=== PATIENT | female | born 1990 | race Asian ===

== ENCOUNTER 2024-12-01 07:37 | Inpatient (IN) ==
[2024-12-01] MEDS ORDERED: LIDOCAINE 1% LOCAL 20 ML VIAL INFIL PRN (07:58)
[2024-12-01 08:35] LABS: Hematocrit (blood only) 36.3 % (37.0-47.0); Hemoglobin 12.1 g/dl (12.0-16.0); Mean Corpuscular Hemoglobin 30.1 pg (25.0-34.0); Mean Corpuscular Hgb Conc 33.3 g/dL (32.0-36.0); Mean Corpuscular Volume 90.3 fL (80.0-100.0); Mean Platelet Volume 12.7 fL (9.4-12.4); Platelet Count 114 K/uL (130-400); RDW Coefficient of Variation 14.2 % (11.5-14.5); RDW Standard Deviation 46.7 fL (36.4-46.3); Red Blood Count 4.02 M/uL (4.20-5.40); White Blood Count 7.91 K/ul (4.8-10.8)
--- NOTE | 2024-12-01 08:58 | History & Physical Report ---
Date of Service December 01, 2024 Assessment & Plan (1) Supervision of normal intrauterine in primigravida: (2) Gestational diabetes: (3) conceived through in vitro fertilization: (4) Hypothyroidism during : Marcie Moses is a 31 y/o female currently at 39/6/7 WGA with an CECELIA 12/02/24 as determined by Ultrasound who is here for induction. Her was complicated by hypothyroidism and Diet-controlled GDM. Membranes were stripped at last office visit on 11/28/24. - Start Pitocin for induction of labor - Anesthesiology consult for epidural per pt request - NPO until post delivery Admission and Anticipated Discharge Date Admission Date: December 01, 2024 History of Present Illness Primary Care Provider: Kim Dash, DO Moses is a 31 y/o female currently at 39/6/7 WGA with an CECELIA 12/02/24 as determined by Ultrasound who is here for induction. Her was complicated by Hypothyroidism and GDM. no contractions; regular movement; no fluid loss; no bloody show External FHT and external uterine monitors used; Category 1 tracing; moderate FH T variability. Had regular appointments with OB. Blood Type O Positive 05/03/24 Antibody Screen NEGATIVE 05/03/24 Hgb 12.5 g/dl (12.0-16.0) 10/20/24 Hct 38.8 % (37.0-47.0) 10/20/24 MCV 89.0 fL (80.0-100.0) 10/20/24 Plt Count 147 K/uL (130-400) 10/20/24 Rubella IgG Antibody Immune (Immune) 05/03/24 Treponema pallidum Ab Negative (Negative) 09/22/24 Hep Bs Antigen Negative (Negative) 05/03/24 Hepatitis C Antibody Negative (Negative) 05/03/24 HIV 1&2 Ab/P24 Ag 4thGn Negative (Negative) 05/03/24 Glucose 1 Hr 50 gm 194 mg/dl (70-130) H 09/22/24 OB Optional Labs: Chlamydia trachomatis RNA Not Detected (NotDetected) 05/03/24 Neisseria gonorrhoeae RNA Not Detected (NotDetected) 05/03/24 Thyroid Stimulating Hormone (TSH) 1.770 uIu/ml (0.300-4.500) 09/21/24 H.1 (today) Hct: 36.3 (today) WBC: 7.91 (today) Plt: 114 (today) Allergies Allergy/AdvReac Type Severity Reaction Status Date / Time No Known Allergies Allergy Verified 11/28/24 16:23 Home Medications Medication Instructions Recorded Confirmed Type mv-mn no.97-folic 180 mcg-dha 25 1 tab PO DAILY 12/24/23 12/01/24 History mg-herb no.293 25 mg chewable tablet (Alive Daily Support ) ondansetron HCl 4 mg tablet 4 mg PO Q6H PRN nausea and 05/03/24 12/01/24 Rx vomiting #30 tabs levothyroxine 100 mcg tablet 100 mcg PO DAILY #30 tabs 08/05/24 12/01/24 Rx acetone (urine) test (Ketone Urine #50 ea 10/03/24 11/28/24 Rx Test strips) blood sugar diagnostic (OneTouch #150 ea 10/03/24 11/28/24 Rx Verio test strips) blood-glucose meter (OneTouch #1 ea 10/03/24 11/28/24 Rx Verio Reflect Meter) lancets 33 gauge (OneTouch Delica #150 ea 10/03/24 11/28/24 Rx Plus Lancet) Patient History Medical History Endometrial polyp Hypothyroid Sarah's disease Surgical History History of gynecologic surgery egg retrieval S/P laparoscopic cholecystectomy Family History Denies family history of Ovarian cancer Breast cancer Colorectal cancer Uterine cancer Social History Smoking Status: Never smoker Second Hand Exposure: No; Do You Dip or Chew Tobacco: No; Hx Alcohol Use: No Hx Substance Use: No Preferred Language: Citizen Of [place] Communication Ability: Effective Insole Presser Required: No Beliefs That Will Affect Care: None marital status: marital status details: Grabiel (34) [phone] Current Living Situation: Family Current Living Situation Comment: but living in [place] working, lives with sister current occupational status: employed current occupation: [employer] Feels Safe at Home: Yes Assistive Devices: None Review of Systems Denies fever, chills, sweats Denies shortness of breath, difficulty breathing, chest pain, palpitations, chest pressure. Denies breast pain. Denies dysuria. Denies headache or changes in vision. Physical Exam Physical Exam: General: Alert, oriented. No acute distress. Cardiac: Regular rate and rhythm, no murmurs/rubs/gallops. Respiratory: Clear to auscultation bilaterally a/p, no wheezes/rales/rhonchi. No increased work of breathing. Symmetrical chest rise. No respiratory distress. Abdomen: Gravid; Pelvic: Dilation 2cm; Effacement 80%; Station -[address] Jones on 11/28/24 Lower Extremities: No lower extremity edema or swelling. No deep calf pain. Miguel's negative bilaterally Results & Data Vital Signs (Past 12 Hours) Vital Signs Pulse BP 12/01/24 07:53 108 H 122/81 Code Status & VTE Plan VTE Prophylaxis Plan VTE Prophylaxis will be ordered: No Monitoring External Monitor External FHT and external uterine monitors used; Category 1 tracing; moderate FHT variability. Resident Activity Tracking Resident Involvement: Resident Care Provided Care Provided: Adult Hospital Medicine
[2024-12-01] MEDS: OXYTOCIN 30 UNITS/NSS 30 UNITS/500 ML BAG IV PRN (08:59)
[2024-12-01] MEDS: LACTATED RINGER'S 1,000 ML IV PRN (14:42)
[2024-12-01] MEDS ORDERED: ePHEDrine sulfate 50 MG/ML AMP IV PRN (15:06)
[2024-12-01] MEDS ORDERED: LIDOCAINE 2% MPF LOCAL 5 ML VIAL EPI PRN (15:06)
[2024-12-01] MEDS ORDERED: SODIUM CHLORIDE 0.9% PF INJ 10 ML VIAL EPI PRN (15:06)
[2024-12-01] MEDS ORDERED: diphenhydrAMINE 50 MG/ML VIAL IV PRN (15:06)
[2024-12-01] MEDS ORDERED: ONDANSETRON INJ 2 MG/ML 2 ML VIAL IV PRN (15:06)
[2024-12-01] MEDS ORDERED: NALOXONE HCL 1 MG in SODIUM CHLORIDE 0.9% 1,000 ML IV PRN (15:06)
[2024-12-01] MEDS ORDERED: fentaNYL citrate PF 100 MCG/2 ML VIAL EPI PRN (15:06)
[2024-12-01] MEDS ORDERED: BUPIVACAINE 0.25% PF 30 ML VIAL EPI PRN (15:06)
[2024-12-01] MEDS ORDERED: NALBUPHINE HCL INJ 10 MG/ML AMP IV PRN (15:06)
[2024-12-01] MEDS ORDERED: ROPIVACAINE 0.5% PF 5 MG/ML 20 ML VIAL EPI PRN (15:06)
[2024-12-01] MEDS ORDERED: NALOXONE HCL 0.4 MG/1 ML VIAL/CARP IV PRN (15:06)
--- NOTE | 2024-12-01 15:08 | Anesthesiology Consultation ---
Date of Service December 01, 2024 Assessment & Plan (1) Encounter for pre-operative examination: Chart Review Chart Review: Patient NOT seen in Pre Admission Testing and Acceptable Risk for Labor Epidural Consults Requested none History Height/Weight Height: 5 ft 2 in Weight: 70.76 kg Allergies Allergy/AdvReac Type Severity Reaction Status Date / Time No Known Allergies Allergy Verified 11/28/24 16:23 Medications Home Medications Medication Instructions Recorded Confirmed Last Taken mv-mn no.97-folic 180 mcg-dha 25 1 tab PO DAILY 12/24/23 12/01/24 11/30/24 mg-herb no.293 25 mg chewable tablet (Alive Daily Support ) ondansetron HCl 4 mg tablet 4 mg PO Q6H PRN nausea and 05/03/24 12/01/24 Unknown vomiting #30 tabs levothyroxine 100 mcg tablet 100 mcg PO DAILY #30 tabs 08/05/24 12/01/24 12/01/24 acetone (urine) test (Ketone Urine #50 ea 10/03/24 11/28/24 Unknown Test strips) blood sugar diagnostic (OneTouch #150 ea 10/03/24 11/28/24 Unknown Verio test strips) blood-glucose meter (OneTouch #1 ea 10/03/24 11/28/24 Unknown Verio Reflect Meter) lancets 33 gauge (OneTouch Delica #150 ea 10/03/24 11/28/24 Unknown Plus Lancet) Active Medications Generic Name Dose Route Start Last Admin Trade Name Freq PRN Reason Stop Dose Admin Oxytocin 30 units in 500 mls @ 18 mls/hr 12/01/24 07:58 12/01/24 14:00 Pitocin 30 Units/Nss IV 12/03/24 07:57 1.08 units/hr .Q24H PRN 18 mls/hr Labor Induction/Augmentation Titration Protocol 1.08 UNITS/HR Lactated Ringer's 1,000 mls @ 125 mls/hr 12/01/24 07:58 12/01/24 14:42 Lr IV 12/03/24 07:57 999 mls/hr .Q8H PRN Administration L&D Protocol Protocol Past Medical History Medical History Endometrial polyp Hypothyroid Sarah's disease Exercise / Class Metabolic Activity II 4-5 Yardwork/Stairs/Walk up hill Past Family History Family History Denies family history of Ovarian cancer Breast cancer Colorectal cancer Uterine cancer Past Surgical History Surgical History History of gynecologic surgery egg retrieval S/P laparoscopic cholecystectomy Social History Smoking Status: Never smoker Do You Dip or Chew Tobacco: No Hx Alcohol Use: No alcohol intake frequency: holidays/special occasions only Hx Substance Use: No substance use type: does not use Physical Exam Vital Signs Last Vital Signs Temp 36.5 C 12/01/24 12:46 Pulse 89 12/01/24 15:37 Resp 16 12/01/24 13:00 BP 121/69 12/01/24 15:37 Pulse Ox 100 12/01/24 15:33 Testing Laboratory Results 12/01/24 08:15 12/01/24 10:02 POC Glucose 86
[2024-12-01] MEDS: fentaNYL citrate PF 100 MCG/2 ML VIAL EPI STA (15:36)
[2024-12-01] MEDS: SODIUM CHLORIDE 0.9% PF INJ 10 ML VIAL EPI STA (15:36)
[2024-12-01] MEDS: BUPIVACAINE 0.25% PF 30 ML VIAL EPI STA (15:36)
[2024-12-01] MEDS: LIDOCAINE 2%/EPINEPHRINE 1:200,000 20 ML PF EPI STA (15:36)
[2024-12-01] MEDS: fentANYL 2 MCG/ML BUPIVacaine 0.125%-NSS 100ML BAG EPI PRN (15:43)
[2024-12-01] MEDS: fentaNYL citrate PF 100 MCG/2 ML VIAL ONE (16:48)
[2024-12-01] MEDS: BUPIVACAINE 0.25% PF 30 ML VIAL ONE (16:48)
[2024-12-01] MEDS: LIDOCAINE 2%/EPINEPHRINE 1:200,000 20 ML PF ONE (16:48)
[2024-12-01] MEDS: ePHEDrine sulfate 50 MG/ML AMP ONE (16:48)
[2024-12-01] MEDS: fentANYL 2 MCG/ML BUPIVacaine 0.125%-NSS 100ML BAG ONE (16:48)
[2024-12-01] MEDS: SODIUM CHLORIDE 0.9% PF INJ 10 ML VIAL ONE (16:49)
[2024-12-02] MEDS: OXYTOCIN 30 UNITS/NSS 30 UNITS/500 ML BAG IV PRN ×3 (00:40→05:40)
--- NOTE | 2024-12-02 00:48 | Delivery Summary ---
Vaginal Delivery Summary Date of Service December 02, 2024 Vaginal Delivery Summary and 2nd Degree LAC Spontaneous vaginal delivery the patient was induced at 39+ weeks gestational diabetes initially Pitocin was started then artificial rupture membranes after an epidural she progressed to fully dilated she had a tight band of tissue that was in the lower vagina that was tearing I offered her to keep pushing through the tight band of tissue or a small episiotomy and she elected episiotomy on a push this was made with the scissors and a small 1 cm incision she was unable to push the baby out in occiput anterior position fluid was clear no nuchal cord gentle traction the baby resulted in easy delivery live vigorous male infant cord clamped and cut cord gases obtained placenta removed with traction on exam there was a right sulcus tear this was repaired with 3-0 Vicryl and there was also the right medial lateral episiotomy this did not extend to the rectal sphincter this was repaired with 3-0 Vicryl in the usual fashion sponge and instrument counts were correct QBL per nursing record [id number] Vaginal Delivery Charge Delivery Type Details: and 2nd Degree LAC
[2024-12-02] MEDS ORDERED: ACETAMINOPHEN 325 MG TAB PO PRN ×2 (01:00→07:12)
[2024-12-02] MEDS ORDERED: bisacodyL 10 MG SUPP PR PRN (01:00)
[2024-12-02] MEDS ORDERED: BENZOCAINE 20% SPRY 85 APPLN/85 GM CAN EXT PRN ×2 (01:00→07:12)
[2024-12-02] MEDS ORDERED: HYDROCORTISONE ACETATE 25 MG SUPP PR PRN ×2 (01:00→07:12)
[2024-12-02] MEDS: IBUPROFEN 600 MG TAB PO PRN ×2 (01:19→18:15)
--- NOTE | 2024-12-02 01:41 | Anesthesia Procedure Note ---
Date of Service December 02, 2024 Anesthesia Post Epidural Note Vital Signs Vital Signs: Temp Pulse Resp BP Pulse Ox O2 Del Method 36.7 C 112 H 18 103/50 L 99 Room Air 12/01/24 22:45 12/02/24 01:30 12/02/24 01:15 12/02/24 01:30 12/02/24 00:45 12/01/24 19:05 Pain Intensity Abdomen: Pain Intensity: 5 Notes Mental Status: alert / awake / arousable and participated in evaluation Nausea / Vomiting: adequately controlled Pain: adequately controlled Airway Patency, RR, SpO2: stable & adequate BP & HR: stable & adequate Hydration State: stable & adequate Neuraxial Anesthesia: was administered and sensory block is resolving Anesthetic Complications: no major complications apparent and Pt Satisfied with anesthetic care Epidural: Removed without complications and With tip intact
[2024-12-02] MEDS: DIPHTHER/TETAN/PERTUS Vaccine (Tdap, Adol/Adult) 0.5mL IM ONE (02:10)
[2024-12-02] MEDS: miSOPROStoL 200 MCG TAB PR ONE (02:54)
[2024-12-02] MEDS ORDERED: SODIUM CHLORIDE 0.9% 100 ML IV PRN ×3 (03:13→10:45)
[2024-12-02] MEDS ORDERED: PROPOFOL IV EMULSION 10 MG/ML 20 ML VIAL IV ONE (04:23)
[2024-12-02] MEDS ORDERED: DEXAMETHASONE SOD INJ 4 MG/ML VIAL ONE (04:24)
[2024-12-02] MEDS ORDERED: ONDANSETRON INJ 2 MG/ML 2 ML VIAL ONE (04:24)
[2024-12-02] MEDS ORDERED: fentaNYL citrate PF 100 MCG/2 ML VIAL ONE ×2 (04:24→05:09)
[2024-12-02] MEDS ORDERED: SUCCINYLCHOLINE CHLORIDE 20 MG/ML 10 ML VIAL IV ONE (04:24)
[2024-12-02] MEDS ORDERED: ceFAZolin 2000MG 2,000 MG/15 ML SYR IV STA (04:52)
[2024-12-02] MEDS ORDERED: ALBUMIN HUMAN 5% 12.5 GM/250 ML VIAL IV ONE (05:24)
--- NOTE | 2024-12-02 05:30 | Operative Report ---
Post Operative Report Pre & Post Diagnosis Operation Date: 12/02/24 04:30 Pre-Op Diagnosis: exam and drainage of hematoma under anesthesia I identified the patient and participated in the time-out.: Yes Procedure Operation Date: 12/02/24 04:30 Actual Procedures p Exam Under Anesthesia for drainage of hematoma - Carl Grant MD, FACOG Surgeon Carl Grant MD, FACOG Award Clerk . Quantitative Blood Loss (QBL) 110 Findings Consistent with Post-Op Diagnosis Specimens none Description of Procedure Clinical note the patient had a vaginal delivery with small episiotomy and a right sulcal tear this was repaired at the time of delivery subsequently she had 2 episodes of bleeding within the few hours after delivery specifically this responded to pressure and massage of the uterus and increase in Pitocin I could not see any bleeding from the repair sites at this time after this though second bleeding at event occurred and at that time I noted that there was a right sided hematoma extending to the right buttocks. At this stage I recommended going to the operating room since this was emergent this was just proceeded directly risks and benefits discussed with family She was given a general anesthetic prepped and draped in dorsal lithotomy position in [facility] bladder had a Amaya catheter in, 650 of urine had been initially found from this I examined the uterus carefully performing an internal uterine exam and bimanual the uterus tone was firm there was nothing inside of the uterus either clot or placenta the bleeding clearly seem to be coming from the hematoma on the right side this area was opened up digitally and then a large clot was removed from the hematoma. Care was taken to look all around the vagina this was the only spot of bleeding the repair of the vaginal aspect was done first with 3-0 Vicryl I then identified the hematoma and oversewed this with 3-0 Vicryl in a [id number] stitch x 2 the crown stitch was then performed the rest of the peritoneum was repaired at this stage there was no need for packing as there was no significant bleeding the hematoma had been evacuated QBL for this procedure was estimated to be at 110 mL prior to this with the delivery and the 2 subsequent bleeds after delivery time the QBL was 1462 mL thus 1572 total after discussion with anesthesia we agreed to haro sfuse 1 unit of blood 3 doses of Ancef will be given as well she will be watched carefully sponge and instrument counts correct I attest to the content of the Intraoperative Record and any orders documented therein. Any exceptions are noted below. OB Procedure Charges 96988 PP Curettage (drainage and repair of hematoma)
[2024-12-02] MEDS: LACTATED RINGER'S 1,000 ML IV SCH (05:45)
[2024-12-02] MEDS: TRANEXAMIC ACID / 0.7% NACL 1,000 MG/100 ML BAG IV STA (06:00)
[2024-12-02] MEDS ORDERED: PHENYLEPHRINE 100MCG/ML 5ML SYR ONE (06:05)
[2024-12-02] MEDS ORDERED: ePHEDrine sulfate 50 MG/5 ML SYR ONE (06:05)
[2024-12-02] MEDS ORDERED: DIPHTHER/TETAN/PERTUS Vaccine (Tdap, Adol/Adult) 0.5mL IM ONE ×2 (06:11→07:12)
--- NOTE | 2024-12-02 06:12 | Anesthesiology Progress Note ---
Date of Service December 02, 2024 Anesthesia Post Procedure Vital Signs Vital Signs: Temp Pulse Resp BP Pulse Ox O2 Del Method 12/02/24 06:09 113 H 101/61 12/02/24 06:05 118 H 100 12/02/24 06:04 118 H 105/65 12/02/24 06:00 123 H 100 12/02/24 05:59 133 H 107/68 12/02/24 05:57 36.6 C 123 H 18 107/66 100 12/02/24 05:55 132 H 100 12/02/24 05:50 129 H 100 12/02/24 05:48 139 H 90 12/02/24 05:45 130 H 100 12/02/24 05:43 130 H 107/66 12/02/24 05:40 134 H 100 12/02/24 04:32 128 H 100 12/02/24 04:30 141 H 119/71 12/02/24 04:27 124 H 100 12/02/24 04:22 120 H 100 12/02/24 04:17 132 H 100 12/02/24 04:16 125 H 114/70 12/02/24 04:12 160 H 100 12/02/24 04:07 148 H 100 12/02/24 04:02 134 H 100 12/02/24 04:00 153 H 111/59 L 12/02/24 03:57 109 H 100 12/02/24 03:52 120 H 100 12/02/24 03:47 92 H 100 12/02/24 03:45 101 H 77/47 L 12/02/24 03:42 93 H 100 12/02/24 03:37 87 100 12/02/24 03:32 85 100 12/02/24 03:30 80 77/48 L 12/02/24 03:27 83 100 12/02/24 03:22 82 100 12/02/24 03:17 93 H 100 12/02/24 03:15 90 88/56 L 12/02/24 03:12 102 H 100 12/02/24 03:06 87 99 12/02/24 03:01 97 H 100 12/02/24 03:00 95 H 86/57 L 12/02/24 02:56 95 H 100 12/02/24 02:51 116 H 83/53 L 100 12/02/24 02:45 101 H 82/50 L 12/02/24 02:30 115 H 83/53 L 12/02/24 02:15 18 12/02/24 02:15 106 H 92/56 L 12/02/24 02:00 96 H 81/54 L 12/02/24 01:45 18 12/02/24 01:45 100 H 90/53 L 12/02/24 01:30 18 12/02/24 01:30 112 H 103/50 L 12/02/24 01:23 103 H 118/53 L 12/02/24 01:15 18 12/02/24 01:07 111 H 97/57 L 12/02/24 01:03 121 H 81/48 L 12/02/24 01:02 127 H 81/44 L 12/02/24 01:00 18 12/02/24 00:45 18 12/02/24 00:45 114 H 94/60 L 99 12/02/24 00:43 112 H 118/77 12/02/24 00:40 110 H 97 12/02/24 00:35 118 H 97 12/02/24 00:30 133 H 100 12/02/24 00:28 90 131/99 12/02/24 00:25 141 H 97 12/02/24 00:20 131 H 99 12/02/24 00:15 110 H 20 100 12/02/24 00:10 142 H 100 12/02/24 00:05 117 H 97 12/02/24 00:00 105 H 20 100 12/01/24 23:55 100 12/01/24 23:55 99 H 12/01/24 23:50 100 12/01/24 23:50 123 H 12/01/24 23:45 20 12/01/24 23:45 20 12/01/24 23:45 98 12/01/24 23:45 98 H 12/01/24 23:42 83 L 12/01/24 23:42 121 H 12/01/24 23:40 98 12/01/24 23:40 91 H 12/01/24 23:36 82 L 12/01/24 23:36 97 H 12/01/24 23:35 98 12/01/24 23:35 92 H 12/01/24 23:30 77 L 12/01/24 23:30 106 H 12/01/24 23:25 99 12/01/24 23:25 92 H 12/01/24 23:20 98 12/01/24 23:20 85 12/01/24 23:15 97 12/01/24 23:15 86 12/01/24 23:10 74 L 12/01/24 23:10 87 12/01/24 23:06 83 L 12/01/24 23:06 113 H 12/01/24 23:05 100 12/01/24 23:05 90 12/01/24 23:00 20 12/01/24 23:00 20 12/01/24 23:00 99 12/01/24 23:00 91 H 12/01/24 23:00 87 L 12/01/24 23:00 97 H 12/01/24 22:59 95 H 12/01/24 22:59 109/54 L 12/01/24 22:55 93 12/01/24 22:55 98 H 12/01/24 22:53 86 L 12/01/24 22:53 105 H 12/01/24 22:50 100 12/01/24 22:50 91 H 12/01/24 22:45 36.7 C 12/01/24 22:45 100 12/01/24 22:45 92 H 12/01/24 22:43 104 H 12/01/24 22:43 125/78 12/01/24 22:40 99 12/01/24 22:40 79 12/01/24 22:35 98 12/01/24 22:35 80 12/01/24 22:30 18 12/01/24 22:30 18 12/01/24 22:30 97 12/01/24 22:30 74 12/01/24 22:29 72 12/01/24 22:29 94/54 L 12/01/24 22:25 98 12/01/24 22:25 78 12/01/24 22:20 99 12/01/24 22:20 76 12/01/24 22:15 98 12/01/24 22:15 69 12/01/24 22:13 73 12/01/24 22:13 100/56 L 12/01/24 22:10 99 12/01/24 22:10 74 12/01/24 22:05 99 12/01/24 22:05 82 12/01/24 22:00 18 12/01/24 22:00 18 12/01/24 22:00 98 12/01/24 22:00 71 12/01/24 21:57 71 12/01/24 21:57 95/59 L 12/01/24 21:55 98 12/01/24 21:55 77 12/01/24 21:50 98 12/01/24 21:50 66 12/01/24 21:45 99 12/01/24 21:45 67 12/01/24 21:43 67 12/01/24 21:43 92/52 L 12/01/24 21:40 99 12/01/24 21:40 73 12/01/24 21:35 98 12/01/24 21:35 69 12/01/24 21:30 18 12/01/24 21:30 18 12/01/24 21:30 100 12/01/24 21:30 69 12/01/24 21:28 69 12/01/24 21:28 112/71 12/01/24 21:25 98 12/01/24 21:25 71 12/01/24 21:20 99 12/01/24 21:20 68 12/01/24 21:15 98 12/01/24 21:15 75 12/01/24 21:15 108/65 12/01/24 21:10 99 12/01/24 21:10 72 12/01/24 21:05 99 12/01/24 21:05 70 12/01/24 21:00 18 12/01/24 21:00 18 12/01/24 21:00 98 12/01/24 21:00 86 12/01/24 20:59 70 12/01/24 20:59 111/65 12/01/24 20:55 100 12/01/24 20:55 74 12/01/24 20:50 98 12/01/24 20:50 82 12/01/24 20:45 36.6 C 12/01/24 20:45 97 12/01/24 20:45 87 12/01/24 20:44 71 12/01/24 20:44 99/58 L 12/01/24 20:40 97 12/01/24 20:40 72 12/01/24 20:35 98 12/01/24 20:35 71 12/01/24 20:30 18 12/01/24 20:30 18 12/01/24 20:30 98 12/01/24 20:30 70 12/01/24 20:28 66 12/01/24 20:28 95/54 L 12/01/24 20:25 98 12/01/24 20:25 72 12/01/24 20:20 98 12/01/24 20:20 68 12/01/24 20:15 98 12/01/24 20:15 71 12/01/24 20:15 74 12/01/24 20:15 96/54 L 12/01/24 20:10 98 12/01/24 20:10 74 12/01/24 20:07 92 12/01/24 20:07 71 12/01/24 20:05 98 12/01/24 20:05 70 12/01/24 20:00 98 12/01/24 20:00 64 12/01/24 19:58 68 12/01/24 19:58 92/55 L 12/01/24 19:55 99 12/01/24 19:55 78 12/01/24 19:50 98 12/01/24 19:50 64 12/01/24 19:45 97 12/01/24 19:45 75 12/01/24 19:44 69 12/01/24 19:44 112/57 L 12/01/24 19:40 97 12/01/24 19:40 66 12/01/24 19:35 98 12/01/24 19:35 67 12/01/24 19:30 18 12/01/24 19:30 18 12/01/24 19:30 98 12/01/24 19:30 68 12/01/24 19:29 71 12/01/24 19:29 113/55 L 12/01/24 19:25 99 12/01/24 19:25 66 12/01/24 19:20 98 12/01/24 19:20 68 12/01/24 19:15 97 12/01/24 19:15 67 12/01/24 19:12 68 12/01/24 19:12 112/66 12/01/24 19:10 98 12/01/24 19:10 74 12/01/24 19:05 36.6 C 18 12/01/24 19:05 Room Air 12/01/24 19:05 18 12/01/24 19:05 36.6 C 18 12/01/24 19:05 98 12/01/24 19:05 78 12/01/24 19:00 98 12/01/24 19:00 71 12/01/24 18:59 65 12/01/24 18:59 107/61 12/01/24 18:43 85 12/01/24 18:43 99/68 L 12/01/24 18:35 72 12/01/24 18:35 116/63 12/01/24 18:28 96 12/01/24 18:28 66 12/01/24 18:27 67 12/01/24 18:27 81/51 L 12/01/24 18:23 97 12/01/24 18:23 64 12/01/24 18:18 97 12/01/24 18:18 69 12/01/24 18:13 97 12/01/24 18:13 68 12/01/24 18:13 83/49 L 12/01/24 18:08 97 12/01/24 18:08 66 12/01/24 18:03 98 12/01/24 18:03 69 12/01/24 18:00 18 12/01/24 18:00 18 12/01/24 17:58 97 12/01/24 17:58 70 12/01/24 17:54 18 12/01/24 17:54 36.7 C 18 12/01/24 17:53 98 12/01/24 17:53 71 12/01/24 17:53 101/73 12/01/24 17:48 98 12/01/24 17:48 80 12/01/24 17:43 97 12/01/24 17:43 85 12/01/24 17:43 104/71 12/01/24 17:38 98 12/01/24 17:38 77 12/01/24 17:33 96 12/01/24 17:33 73 12/01/24 17:32 72 12/01/24 17:32 98/58 L 12/01/24 17:28 97 12/01/24 17:28 78 12/01/24 17:23 98 12/01/24 17:23 70 12/01/24 17:22 85 12/01/24 17:22 106/69 12/01/24 17:18 98 12/01/24 17:18 76 12/01/24 17:13 98 12/01/24 17:13 65 12/01/24 17:12 67 12/01/24 17:12 114/57 L 12/01/24 17:08 97 12/01/24 17:08 68 12/01/24 17:03 98 12/01/24 17:03 63 12/01/24 17:01 68 12/01/24 17:01 105/62 12/01/24 16:58 97 12/01/24 16:58 68 12/01/24 16:53 97 12/01/24 16:53 70 12/01/24 16:52 65 12/01/24 16:52 104/57 L 12/01/24 16:48 98 12/01/24 16:48 72 12/01/24 16:43 98 12/01/24 16:43 70 12/01/24 16:42 75 12/01/24 16:42 109/72 12/01/24 16:38 98 12/01/24 16:38 77 12/01/24 16:33 99 12/01/24 16:33 74 12/01/24 16:33 110/60 12/01/24 16:28 98 12/01/24 16:28 74 12/01/24 16:23 98 12/01/24 16:23 71 12/01/24 16:21 73 12/01/24 16:21 111/72 12/01/24 16:18 99 12/01/24 16:18 69 12/01/24 16:13 99 12/01/24 16:13 66 12/01/24 16:12 68 12/01/24 16:12 111/68 12/01/24 16:08 98 12/01/24 16:08 79 12/01/24 16:03 100 12/01/24 16:03 83 12/01/24 16:01 88 12/01/24 16:01 131/85 12/01/24 15:58 100 12/01/24 15:58 80 12/01/24 15:58 120/75 12/01/24 15:55 74 06/19/25 15:55 111/73 12/01/24 15:53 99 12/01/24 15:53 85 12/01/24 15:52 80 12/01/24 15:52 116/76 12/01/24 15:49 81 12/01/24 15:49 112/70 12/01/24 15:48 99 12/01/24 15:48 84 12/01/24 15:46 74 12/01/24 15:46 110/78 12/01/24 15:43 100 12/01/24 15:43 80 12/01/24 15:43 82 12/01/24 15:43 114/71 12/01/24 15:40 96 H 12/01/24 15:40 125/76 12/01/24 15:38 100 12/01/24 15:38 93 H 12/01/24 15:37 89 12/01/24 15:37 121/69 12/01/24 15:34 90 12/01/24 15:34 134/63 12/01/24 15:33 100 12/01/24 15:33 102 H 12/01/24 15:31 91 H 12/01/24 15:31 125/79 12/01/24 15:28 100 12/01/24 15:28 92 H 12/01/24 15:23 100 12/01/24 15:23 111 H 12/01/24 15:20 97 H 12/01/24 15:20 128/70 12/01/24 15:18 100 12/01/24 15:18 114 H 12/01/24 15:13 100 12/01/24 15:13 103 H 12/01/24 15:08 99 12/01/24 15:08 84 12/01/24 15:03 99 12/01/24 15:03 86 12/01/24 13:00 16 12/01/24 13:00 16 12/01/24 12:46 16 12/01/24 12:46 36.5 C 16 12/01/24 12:46 78 12/01/24 12:46 109/62 12/01/24 11:01 74 12/01/24 11:01 101/66 12/01/24 09:59 86 06/19/25 09:59 99/65 L 12/01/24 09:17 36.5 C 108 H 16 122/81 12/01/24 07:53 108 H 122/81 Pain Intensity Abdomen: Pain Intensity: 5 Transfer of Care Handoff Completed per policy Notes Mental Status: alert / awake / arousable and participated in evaluation Patient Amnestic to Procedure: Yes Nausea / Vomiting: adequately controlled Pain: adequately controlled Airway Patency, RR, SpO2: stable & adequate BP & HR: stable & adequate Hydration State: stable & adequate Anesthetic Complications: no major complications apparent and Pt Satisfied with anesthetic care Notes: 2nd PIV started in recovery and 1 unit pRBC started given bleeding (hematoma). See operative note for full details. Pain well controlled with minimal nausea. Post-transfusion CBC to be collected per OB physician.
[2024-12-02] MEDS ORDERED: MoRPHine SULFATE 2 MG/ML CARP IV PRN (06:30)
[2024-12-02] MEDS ORDERED: LEVOTHYROXINE SODIUM 100 MCG TABLET PO SCH (06:30)
[2024-12-02] MEDS: miSOPROStoL 200 MCG TAB ONE (06:45)
[2024-12-02] MEDS: MoRPHine SULFATE 2 MG/ML CARP ONE (07:06)
[2024-12-02] MEDS ORDERED: OXYTOCIN 30 UNITS/NSS 30 UNITS/500 ML BAG IV PRN (07:12)
[2024-12-02] MEDS ORDERED: IBUPROFEN 600 MG TAB PO PRN (07:12)
--- NOTE | 2024-12-02 07:17 | Obstetrical Progress Note ---
Date of Service December 02, 2024 Assessment & Plan Admission and Anticipated Discharge Date Admission Date: December 01, 2024 Subjective Note patient experiencing some discomfort I examined her at 7:17 AM there still is some swelling and the right buttock area I have left packing in place. I do believe there is some oozing from the hematoma but it is not brisk bleeding will continue with packing and monitoring closely labs she is receiving blood as we speak Results & Data Vital Signs (Past 12 Hours) Vital Signs Temp Pulse Resp BP Pulse Ox 12/02/24 07:14 118 H 101/60 12/02/24 07:11 124 H 92 12/02/24 07:10 124 H 100 12/02/24 07:09 114 H 95/59 L 12/02/24 07:05 106 H 100 12/02/24 07:04 111 H 102/62 12/02/24 07:01 119 H 92 12/02/24 07:00 105 H 100 12/02/24 06:59 105 H 100/62 12/02/24 06:55 110 H 99 12/02/24 06:54 111 H 97/61 L 12/02/24 06:50 109 H 100 12/02/24 06:49 116 H 94/63 L 12/02/24 06:45 109 H 100 12/02/24 06:44 112 H 97/65 L 12/02/24 06:40 111 H 100 12/02/24 06:39 109 H 98/67 L 12/02/24 06:35 116 H 97/62 L 100 12/02/24 06:30 113 H 100 12/02/24 06:29 114 H 99/58 L 12/02/24 06:25 112 H 100 12/02/24 06:24 110 H 98/60 L 12/02/24 06:20 118 H 100 12/02/24 06:19 98.1 F 18 12/02/24 06:19 98.1 F 111 H 18 101/59 L 12/02/24 06:15 106 H 100 12/02/24 06:14 111 H 105/59 L 12/02/24 06:10 107 H 100 12/02/24 06:09 113 H 101/61 12/02/24 06:05 118 H 100 12/02/24 06:04 118 H 105/65 12/02/24 06:00 123 H 100 06/20/25 05:59 133 H 107/68 12/02/24 05:57 97.9 F 123 H 18 107/66 100 12/02/24 05:57 18 12/02/24 05:57 98.4 F 18 12/02/24 05:55 132 H 100 12/02/24 05:50 129 H 100 12/02/24 05:48 139 H 90 12/02/24 05:45 130 H 100 12/02/24 05:43 130 H 107/66 12/02/24 05:40 134 H 100 12/02/24 04:32 128 H 100 12/02/24 04:30 141 H 119/71 12/02/24 04:27 124 H 100 12/02/24 04:22 120 H 100 12/02/24 04:17 132 H 100 12/02/24 04:16 125 H 114/70 12/02/24 04:12 160 H 100 12/02/24 04:07 148 H 100 12/02/24 04:02 134 H 100 12/02/24 04:00 153 H 111/59 L 12/02/24 03:57 109 H 100 12/02/24 03:52 120 H 100 12/02/24 03:47 92 H 100 12/02/24 03:45 101 H 77/47 L 12/02/24 03:42 93 H 100 12/02/24 03:37 87 100 12/02/24 03:32 85 100 12/02/24 03:30 80 77/48 L 12/02/24 03:27 83 100 12/02/24 03:22 82 100 12/02/24 03:17 93 H 100 12/02/24 03:15 90 88/56 L 12/02/24 03:12 102 H 100 12/02/24 03:06 87 99 12/02/24 03:01 97 H 100 12/02/24 03:00 95 H 86/57 L 12/02/24 02:56 95 H 100 12/02/24 02:51 116 H 83/53 L 100 12/02/24 02:45 101 H 82/50 L 12/02/24 02:30 115 H 83/53 L 12/02/24 02:15 18 12/02/24 02:15 106 H 92/56 L 12/02/24 02:00 96 H 81/54 L 12/02/24 01:45 18 12/02/24 01:45 100 H 90/53 L 12/02/24 01:30 18 12/02/24 01:30 112 H 103/50 L 12/02/24 01:23 103 H 118/53 L 12/02/24 01:15 18 12/02/24 01:07 111 H 97/57 L 12/02/24 01:03 121 H 81/48 L 12/02/24 01:02 127 H 81/44 L 12/02/24 01:00 18 12/02/24 00:45 18 12/02/24 00:45 114 H 94/60 L 99 12/02/24 00:43 112 H 118/77 12/02/24 00:40 110 H 97 12/02/24 00:35 118 H 97 12/02/24 00:30 133 H 100 12/02/24 00:28 90 131/99 12/02/24 00:25 141 H 97 12/02/24 00:20 131 H 99 12/02/24 00:15 110 H 20 100 12/02/24 00:10 142 H 100 12/02/24 00:05 117 H 97 12/02/24 00:00 105 H 20 100 12/01/24 23:55 100 12/01/24 23:55 99 H 12/01/24 23:50 100 12/01/24 23:50 123 H 12/01/24 23:45 20 12/01/24 23:45 20 12/01/24 23:45 98 12/01/24 23:45 98 H 12/01/24 23:42 83 L 12/01/24 23:42 121 H 12/01/24 23:40 98 12/01/24 23:40 91 H 12/01/24 23:36 82 L 12/01/24 23:36 97 H 12/01/24 23:35 98 12/01/24 23:35 92 H 12/01/24 23:30 77 L 12/01/24 23:30 106 H 12/01/24 23:25 99 12/01/24 23:25 92 H 12/01/24 23:20 98 12/01/24 23:20 85 12/01/24 23:15 97 06/19/25 23:15 86 12/01/24 23:10 74 L 12/01/24 23:10 87 12/01/24 23:06 83 L 12/01/24 23:06 113 H 12/01/24 23:05 100 12/01/24 23:05 90 12/01/24 23:00 20 12/01/24 23:00 20 12/01/24 23:00 99 12/01/24 23:00 91 H 12/01/24 23:00 87 L 12/01/24 23:00 97 H 12/01/24 22:59 95 H 12/01/24 22:59 109/54 L 12/01/24 22:55 93 12/01/24 22:55 98 H 12/01/24 22:53 86 L 12/01/24 22:53 105 H 12/01/24 22:50 100 12/01/24 22:50 91 H 12/01/24 22:45 98.1 F 12/01/24 22:45 100 12/01/24 22:45 92 H 12/01/24 22:43 104 H 12/01/24 22:43 125/78 12/01/24 22:40 99 12/01/24 22:40 79 12/01/24 22:35 98 12/01/24 22:35 80 12/01/24 22:30 18 12/01/24 22:30 18 12/01/24 22:30 97 12/01/24 22:30 74 12/01/24 22:29 72 12/01/24 22:29 94/54 L 12/01/24 22:25 98 12/01/24 22:25 78 12/01/24 22:20 99 12/01/24 22:20 76 12/01/24 22:15 98 12/01/24 22:15 69 12/01/24 22:13 73 12/01/24 22:13 100/56 L 12/01/24 22:10 99 12/01/24 22:10 74 12/01/24 22:05 99 12/01/24 22:05 82 12/01/24 22:00 18 12/01/24 22:00 18 12/01/24 22:00 98 12/01/24 22:00 71 12/01/24 21:57 71 12/01/24 21:57 95/59 L 12/01/24 21:55 98 12/01/24 21:55 77 12/01/24 21:50 98 12/01/24 21:50 66 12/01/24 21:45 99 12/01/24 21:45 67 12/01/24 21:43 67 12/01/24 21:43 92/52 L 12/01/24 21:40 99 12/01/24 21:40 73 12/01/24 21:35 98 12/01/24 21:35 69 12/01/24 21:30 18 12/01/24 21:30 18 12/01/24 21:30 100 12/01/24 21:30 69 12/01/24 21:28 69 12/01/24 21:28 112/71 12/01/24 21:25 98 12/01/24 21:25 71 12/01/24 21:20 99 12/01/24 21:20 68 12/01/24 21:15 98 12/01/24 21:15 75 12/01/24 21:15 108/65 12/01/24 21:10 99 12/01/24 21:10 72 12/01/24 21:05 99 12/01/24 21:05 70 12/01/24 21:00 18 12/01/24 21:00 18 12/01/24 21:00 98 12/01/24 21:00 86 12/01/24 20:59 70 12/01/24 20:59 111/65 12/01/24 20:55 100 12/01/24 20:55 74 12/01/24 20:50 98 12/01/24 20:50 82 12/01/24 20:45 97.9 F 12/01/24 20:45 97 12/01/24 20:45 87 12/01/24 20:44 71 12/01/24 20:44 99/58 L 12/01/24 20:40 97 12/01/24 20:40 72 12/01/24 20:35 98 12/01/24 20:35 71 12/01/24 20:30 18 12/01/24 20:30 18 12/01/24 20:30 98 12/01/24 20:30 70 12/01/24 20:28 66 12/01/24 20:28 95/54 L 12/01/24 20:25 98 12/01/24 20:25 72 12/01/24 20:20 98 12/01/24 20:20 68 12/01/24 20:15 98 12/01/24 20:15 71 12/01/24 20:15 74 12/01/24 20:15 96/54 L 12/01/24 20:10 98 12/01/24 20:10 74 12/01/24 20:07 92 12/01/24 20:07 71 12/01/24 20:05 98 12/01/24 20:05 70 12/01/24 20:00 98 12/01/24 20:00 64 12/01/24 19:58 68 12/01/24 19:58 92/55 L 12/01/24 19:55 99 12/01/24 19:55 78 12/01/24 19:50 98 12/01/24 19:50 64 12/01/24 19:45 97 12/01/24 19:45 75 12/01/24 19:44 69 12/01/24 19:44 112/57 L 12/01/24 19:40 97 12/01/24 19:40 66 12/01/24 19:35 98 12/01/24 19:35 67 12/01/24 19:30 18 12/01/24 19:30 18 12/01/24 19:30 98 12/01/24 19:30 68 12/01/24 19:29 71 12/01/24 19:29 113/55 L 12/01/24 19:25 99 12/01/24 19:25 66 12/01/24 19:20 98 12/01/24 19:20 68 PG Care Time/CCT Total # of Minutes Spent Total Time Spent with Patient: Total time spent is greater than 50% in coordination of care (as documented) at patient's floor/unit and/or counseling patient: Coding Level of Care Code None
[2024-12-02] MEDS: LEVOTHYROXINE SODIUM 100 MCG TABLET PO SCH (07:58)
[2024-12-02] MEDS: PRENATAL VITAMIN 1 TAB PO SCH (08:00)
[2024-12-02] MEDS ORDERED: PRENATAL VITAMIN 1 TAB PO SCH (08:00)
[2024-12-02] MEDS: DOCUSATE SODIUM 100 MG CAP PO SCH (08:00)
[2024-12-02] MEDS ORDERED: DOCUSATE SODIUM 100 MG CAP PO SCH (08:00)
[2024-12-02 08:26] LABS: Hematocrit (blood only) 22.1 % (37.0-47.0); Hemoglobin 7.6 g/dl (12.0-16.0); Mean Corpuscular Hemoglobin 30.9 pg (25.0-34.0); Mean Corpuscular Hgb Conc 34.4 g/dL (32.0-36.0); Mean Corpuscular Volume 89.8 fL (80.0-100.0); Mean Platelet Volume 12.7 fL (9.4-12.4); Platelet Count 96 K/uL (130-400); RDW Coefficient of Variation 13.7 % (11.5-14.5); Red Blood Count 2.46 M/uL (4.20-5.40)
[2024-12-02 08:45] LABS: Partial Thromboplastin Ratio 1.2; Partial Thromboplastin Time 32 Seconds (21-31); Prothrombin Time 10.6 Seconds (9.0-12.0)
[2024-12-02 10:12] LABS: Hematocrit (blood only) 21.2 % (37.0-47.0); Hemoglobin 7.2 g/dl (12.0-16.0); Mean Corpuscular Hemoglobin 30.1 pg (25.0-34.0); Mean Corpuscular Volume 88.7 fL (80.0-100.0); Platelet Count 107 K/uL (130-400); RDW Coefficient of Variation 13.9 % (11.5-14.5); RDW Standard Deviation 45.1 fL (36.4-46.3); Red Blood Count 2.39 M/uL (4.20-5.40); White Blood Count 13.76 K/ul (4.8-10.8)
[2024-12-02 10:30] LABS: Basophils # (auto) 0.02 K/uL (0.00-0.20); Basophils % (auto) 0.1 %; Immature Granulocytes # (auto) 0.05 K/uL (0.01-0.20); Immature Granulocytes % (auto) 0.4 %; Lymphocytes # (auto) 0.89 K/uL (1.20-3.40); Lymphocytes % (auto) 6.5 %; Monocytes # (auto) 0.69 K/uL (0.11-0.59); Neutrophils # (auto) 12.11 K/uL (1.40-6.50); RBC Morphology Unremarkable
[2024-12-02] MEDS: OXYTOCIN 20 UNITS/LR 1,002 ML IV SCH (10:30)
--- NOTE | 2024-12-02 10:50 | Obstetrical Progress Note ---
Date of Service December 02, 2024 Assessment & Plan (1) Vulval hematoma due to trauma: Plan Situation appears to be improving. Per nursing who examined with Dr. Grant this am, the area is softer, less swollen than previously. This is reassuring. IMproved pain. At this point , recommend transfusing another unit. npo until that unit that and post-transfusion hgb. she is agreeable. Will leave packing in for 24 hours. Amaya draining great urine. Stable at present. Admission and Anticipated Discharge Date Admission Date: December 01, 2024 Subjective Patient notes she is feeling better, her pain is better controlled, her bottom not feeling as bad. Physical Exam Physical Exam: Patient rolled to left side, there is some swelling of the right buttock, it is not discolored. It is softening up (confirmed by nurse who examined this am). vulva with some swelling, no discoloration noted, softer. Making huge amounts of urine. 1000cc since 7:45. ghb 7.2 from 7.6, plts 107 Results & Data Vital Signs (Past 12 Hours) Vital Signs Temp Pulse Resp BP Pulse Ox 12/02/24 10:40 103 H 100 12/02/24 10:35 107 H 100 12/02/24 10:30 97 H 99 12/02/24 10:25 98 H 100 12/02/24 10:20 94 H 94/51 L 100 12/02/24 10:15 100 H 100 12/02/24 10:10 97 H 100 12/02/24 10:05 95 H 100 12/02/24 10:00 94 H 100 12/02/24 09:55 99 H 100 12/02/24 09:50 101 H 97/51 L 100 12/02/24 09:45 106 H 100 12/02/24 09:40 93 H 100 12/02/24 09:35 103 H 99 12/02/24 09:30 106 H 100 12/02/24 09:25 119 H 100 12/02/24 09:20 108 H 98/57 L 100 12/02/24 09:15 102 H 100 12/02/24 09:10 102 H 100 12/02/24 09:05 99 H 99 12/02/24 09:00 100 H 99 12/02/24 08:55 93 H 99 12/02/24 08:50 106 H 94/55 L 99 12/02/24 08:45 93 H 99 12/02/24 08:40 99 H 99 12/02/24 08:35 102 H 100 12/02/24 08:30 98 H 100 12/02/24 08:25 106 H 99 12/02/24 08:20 107 H 99/58 L 100 12/02/24 08:15 104 H 100 12/02/24 08:10 104 H 100 12/02/24 08:05 107 H 100 12/02/24 08:00 108 H 100 12/02/24 07:55 110 H 100 12/02/24 07:50 114 H 112/58 L 100 12/02/24 07:45 36.7 C 20 12/02/24 07:45 118 H 100 12/02/24 07:40 109 H 100 12/02/24 07:35 118 H 100 12/02/24 07:30 115 H 100 12/02/24 07:25 109 H 100 12/02/24 07:24 120 H 100/58 L 12/02/24 07:20 100 12/02/24 07:20 114 H 12/02/24 07:20 126 H 105/55 L 12/02/24 07:15 107 H 100 12/02/24 07:14 118 H 101/60 12/02/24 07:11 124 H 92 12/02/24 07:10 124 H 100 12/02/24 07:09 114 H 95/59 L 12/02/24 07:05 106 H 100 12/02/24 07:04 111 H 102/62 12/02/24 07:01 119 H 92 12/02/24 07:00 105 H 100 12/02/24 06:59 105 H 100/62 12/02/24 06:55 110 H 99 12/02/24 06:54 111 H 97/61 L 12/02/24 06:50 109 H 100 12/02/24 06:49 116 H 94/63 L 12/02/24 06:45 109 H 100 12/02/24 06:44 112 H 97/65 L 12/02/24 06:40 111 H 100 12/02/24 06:39 109 H 98/67 L 12/02/24 06:35 116 H 97/62 L 100 12/02/24 06:30 113 H 100 12/02/24 06:29 114 H 99/58 L 12/02/24 06:25 112 H 100 12/02/24 06:24 110 H 98/60 L 12/02/24 06:20 118 H 100 12/02/24 06:19 36.7 C 18 12/02/24 06:19 36.7 C 111 H 18 101/59 L 12/02/24 06:15 106 H 100 12/02/24 06:14 111 H 105/59 L 12/02/24 06:10 107 H 100 12/02/24 06:09 113 H 101/61 12/02/24 06:05 118 H 100 12/02/24 06:04 118 H 105/65 12/02/24 06:00 123 H 100 12/02/24 05:59 133 H 107/68 12/02/24 05:57 36.6 C 123 H 18 107/66 100 12/02/24 05:57 18 12/02/24 05:57 36.9 C 18 12/02/24 05:55 132 H 100 12/02/24 05:50 129 H 100 12/02/24 05:48 139 H 90 12/02/24 05:45 130 H 100 12/02/24 05:43 130 H 107/66 12/02/24 05:40 134 H 100 12/02/24 04:32 128 H 100 12/02/24 04:30 141 H 119/71 12/02/24 04:27 124 H 100 12/02/24 04:22 120 H 100 12/02/24 04:17 132 H 100 12/02/24 04:16 125 H 114/70 12/02/24 04:12 160 H 100 12/02/24 04:07 148 H 100 12/02/24 04:02 134 H 100 12/02/24 04:00 153 H 111/59 L 12/02/24 03:57 109 H 100 12/02/24 03:52 120 H 100 12/02/24 03:47 92 H 100 12/02/24 03:45 101 H 77/47 L 12/02/24 03:42 93 H 100 12/02/24 03:37 87 100 12/02/24 03:32 85 100 12/02/24 03:30 80 77/48 L 12/02/24 03:27 83 100 12/02/24 03:22 82 100 12/02/24 03:17 93 H 100 12/02/24 03:15 90 88/56 L 12/02/24 03:12 102 H 100 12/02/24 03:06 87 99 12/02/24 03:01 97 H 100 12/02/24 03:00 95 H 86/57 L 12/02/24 02:56 95 H 100 12/02/24 02:51 116 H 83/53 L 100 12/02/24 02:45 101 H 82/50 L 12/02/24 02:30 115 H 83/53 L 12/02/24 02:15 18 12/02/24 02:15 106 H 92/56 L 12/02/24 02:00 96 H 81/54 L 12/02/24 01:45 18 12/02/24 01:45 100 H 90/53 L 12/02/24 01:30 18 12/02/24 01:30 112 H 103/50 L 12/02/24 01:23 103 H 118/53 L 12/02/24 01:15 18 12/02/24 01:07 111 H 97/57 L 12/02/24 01:03 121 H 81/48 L 12/02/24 01:02 127 H 81/44 L 12/02/24 01:00 18 12/02/24 00:45 18 12/02/24 00:45 114 H 94/60 L 99 12/02/24 00:43 112 H 118/77 12/02/24 00:40 110 H 97 12/02/24 00:35 118 H 97 12/02/24 00:30 133 H 100 12/02/24 00:28 90 131/99 12/02/24 00:25 141 H 97 12/02/24 00:20 131 H 99 12/02/24 00:15 110 H 20 100 12/02/24 00:10 142 H 100 12/02/24 00:05 117 H 97 12/02/24 00:00 105 H 20 100 12/01/24 23:55 100 12/01/24 23:55 99 H 12/01/24 23:50 100 12/01/24 23:50 123 H 12/01/24 23:45 20 06/19/25 23:45 20 12/01/24 23:45 98 12/01/24 23:45 98 H 12/01/24 23:42 83 L 12/01/24 23:42 121 H 12/01/24 23:40 98 12/01/24 23:40 91 H 12/01/24 23:36 82 L 12/01/24 23:36 97 H 12/01/24 23:35 98 12/01/24 23:35 92 H 12/01/24 23:30 77 L 12/01/24 23:30 106 H 12/01/24 23:25 99 12/01/24 23:25 92 H 12/01/24 23:20 98 12/01/24 23:20 85 12/01/24 23:15 97 12/01/24 23:15 86 12/01/24 23:10 74 L 12/01/24 23:10 87 12/01/24 23:06 83 L 12/01/24 23:06 113 H 12/01/24 23:05 100 12/01/24 23:05 90 12/01/24 23:00 20 12/01/24 23:00 20 12/01/24 23:00 99 12/01/24 23:00 91 H 12/01/24 23:00 87 L 12/01/24 23:00 97 H 12/01/24 22:59 95 H 12/01/24 22:59 109/54 L 12/01/24 22:55 93 12/01/24 22:55 98 H 12/01/24 22:53 86 L 12/01/24 22:53 105 H 12/01/24 22:50 100 12/01/24 22:50 91 H PG Care Time/CCT Total # of Minutes Spent Total Time Spent with Patient: Total time spent is greater than 50% in coordination of care (as documented) at patient's floor/unit and/or counseling patient: Coding Level of Care Code None Diagnoses Vulval hematoma due to trauma O71.7
[2024-12-02] MEDS: ACETAMINOPHEN 1,000 MG/100 ML VIAL IV PRN (11:36)
[2024-12-02] MEDS: ceFAZolin 2000MG 2,000 MG/15 ML SYR IV SCH (13:04)
[2024-12-02] MEDS: oxyCODONE/ACETAMINOPHEN 5mg/325mg TAB PO PRN (15:53)
[2024-12-02] MEDS: COUGH DROP (SUGAR FREE) LOZ 24 LOZ/1 BOX BUCCAL ONE (16:01)
[2024-12-02] MEDS: COUGH DROP (SUGAR FREE) LOZ 24 LOZ/1 BOX BUCCAL PRN (16:02)
[2024-12-02 19:08] LABS: Hematocrit (blood only) 25.8 % (37.0-47.0); Hemoglobin 9.1 g/dl (12.0-16.0); Mean Corpuscular Hemoglobin 31.2 pg (25.0-34.0); Mean Corpuscular Hgb Conc 35.3 g/dL (32.0-36.0); Mean Corpuscular Volume 88.4 fL (80.0-100.0); Mean Platelet Volume 12.8 fL (9.4-12.4); Platelet Count 99 K/uL (130-400); RDW Coefficient of Variation 14.2 % (11.5-14.5); RDW Standard Deviation 45.2 fL (36.4-46.3); Red Blood Count 2.92 M/uL (4.20-5.40); White Blood Count 14.22 K/ul (4.8-10.8)
--- NOTE | 2024-12-02 19:26 | Obstetrical Progress Note ---
Date of Service December 02, 2024 Assessment & Plan (1) Vulval hematoma due to trauma: Plan Patient doing much better. Vitals stable. Minimal drainage noted. Packing remains in. Maldonado in with excellent uop. Is eating now and plan to transfer to the floor for overnight as she does not need acute care in labor and delivery. Plan to d/c packing and maldonado in the am and start to ambulate slowly. Continue scds overnight. Breast feeding the baby. Subjective Ambulation: limited ambulation (has not been out of bed) Voiding: maldonado catheter in place Passing Gas:: No Diet Tolerance:: clear liquids Lochia:: Small Feeding Type:: breast feeding Patient feeling much better. Pain controlled with oral pain meds. Hungry, wants dinner. hgb is now 9.1, plts 99K Physical Exam Constitutional WD/WN, vitals as above Gastrointestinal (Abdomen) soft, nt, ff at 2 below u Psychiatric A+Ox3, euthymic affect Genitourinary the vulva and buttock are unchanged, no skin changes, area continues to get slowly softer, tender. Results & Data Vital Signs (Past 12 Hours) Vital Signs Temp Pulse Resp BP Pulse Ox 12/02/24 19:20 96 H 100 12/02/24 19:15 81 99 12/02/24 19:10 83 99 12/02/24 19:05 80 99 12/02/24 19:00 85 100 12/02/24 18:55 84 100 12/02/24 18:50 87 100 12/02/24 18:45 85 100 12/02/24 18:40 85 100 12/02/24 18:35 87 100 12/02/24 18:30 93 H 100 12/02/24 18:28 89 93/52 L 12/02/24 18:25 93 H 100 12/02/24 18:22 36.8 C 12/02/24 18:20 91 H 100 12/02/24 18:15 94 H 100 12/02/24 18:10 20 12/02/24 18:10 101 H 97 12/02/24 18:05 101 H 100 12/02/24 18:00 102 H 100 12/02/24 17:55 93 H 100 12/02/24 17:50 90 100 12/02/24 17:45 93 H 100 12/02/24 17:40 87 98 12/02/24 17:35 91 H 99 12/02/24 17:30 90 99 12/02/24 17:28 90 94/52 L 12/02/24 17:25 96 H 100 12/02/24 17:20 92 H 99 12/02/24 17:15 97 H 99 12/02/24 17:10 95 H 100 12/02/24 17:05 101 H 100 12/02/24 17:00 99 H 100 12/02/24 16:55 96 H 100 12/02/24 16:50 94 H 100 12/02/24 16:45 94 H 100 12/02/24 16:40 94 H 100 12/02/24 16:35 97 H 100 12/02/24 16:30 99 H 100 12/02/24 16:28 94 H 96/53 L 12/02/24 16:25 104 H 100 12/02/24 16:20 92 H 100 12/02/24 16:15 98 H 100 12/02/24 16:10 94 H 100 12/02/24 16:05 101 H 100 12/02/24 16:00 97 H 100 12/02/24 15:55 96 H 100 12/02/24 15:50 91 H 100 12/02/24 15:45 91 H 100 12/02/24 15:40 84 99 12/02/24 15:35 85 99 12/02/24 15:30 91 H 100 12/02/24 15:28 90 90/55 L 12/02/24 15:25 92 H 100 12/02/24 15:20 99 H 100 12/02/24 15:15 93 H 100 12/02/24 15:10 93 H 100 12/02/24 15:05 94 H 100 12/02/24 15:00 94 H 100 12/02/24 14:55 99 H 100 12/02/24 14:50 91 H 100 12/02/24 14:45 86 100 12/02/24 14:40 91 H 100 12/02/24 14:35 90 100 12/02/24 14:30 37.0 C 20 12/02/24 14:30 94 H 100 12/02/24 14:27 81 87/56 L 12/02/24 14:25 102 H 100 12/02/24 14:20 95 H 100 12/02/24 14:15 92 H 92/60 L 100 12/02/24 14:10 94 H 100 12/02/24 14:05 89 100 12/02/24 14:00 100 12/02/24 14:00 85 12/02/24 14:00 90 93/57 L 12/02/24 13:55 95 H 100 12/02/24 13:50 96 H 100 12/02/24 13:45 97 H 90/51 L 100 12/02/24 13:40 105 H 98 12/02/24 13:35 93 H 100 12/02/24 13:30 100 12/02/24 13:30 90 12/02/24 13:30 86 89/50 L 12/02/24 13:25 90 100 12/02/24 13:20 92 H 100 12/02/24 13:15 88 88/53 L 100 12/02/24 13:10 97 H 100 12/02/24 13:05 91 H 100 12/02/24 13:00 100 12/02/24 13:00 88 12/02/24 13:00 97 H 93/52 L 12/02/24 12:55 90 100 12/02/24 12:50 92 H 100 12/02/24 12:45 98 H 90/50 L 100 12/02/24 12:40 91 H 98 12/02/24 12:35 92 H 100 12/02/24 12:30 100 12/02/24 12:30 93 H 12/02/24 12:30 97 H 82/48 L 12/02/24 12:25 82 99 12/02/24 12:20 82 99 12/02/24 12:15 100 12/02/24 12:15 94 H 12/02/24 12:15 86 83/49 L 12/02/24 12:10 86 100 12/02/24 12:05 84 100 12/02/24 12:00 92 H 82/48 L 100 12/02/24 11:55 95 H 99 12/02/24 11:50 92 H 98 12/02/24 11:45 100 12/02/24 11:45 96 H 12/02/24 11:45 100 H 88/55 L 12/02/24 11:40 97 H 100 12/02/24 11:35 108 H 100 12/02/24 11:30 100 H 90/52 L 100 12/02/24 11:25 96 H 100 12/02/24 11:20 108 H 100 12/02/24 11:18 98 H 90/50 L 12/02/24 11:15 102 H 100 12/02/24 11:14 36.7 C 97 H 16 85/57 L 100 12/02/24 11:10 103 H 100 12/02/24 11:07 103 H 85/57 L 12/02/24 11:05 103 H 99 12/02/24 11:00 101 H 99 12/02/24 10:55 104 H 99 12/02/24 10:51 104 H 98/56 L 12/02/24 10:50 103 H 100 12/02/24 10:45 105 H 100 12/02/24 10:40 103 H 100 12/02/24 10:35 107 H 100 12/02/24 10:30 97 H 99 12/02/24 10:25 98 H 100 12/02/24 10:20 94 H 94/51 L 100 12/02/24 10:15 100 H 100 12/02/24 10:10 97 H 100 12/02/24 10:05 95 H 100 12/02/24 10:00 94 H 100 12/02/24 09:55 99 H 100 12/02/24 09:50 101 H 97/51 L 100 12/02/24 09:45 106 H 100 12/02/24 09:40 93 H 100 12/02/24 09:35 103 H 99 12/02/24 09:30 106 H 100 12/02/24 09:25 119 H 100 12/02/24 09:20 108 H 98/57 L 100 12/02/24 09:15 102 H 100 12/02/24 09:10 102 H 100 12/02/24 09:05 99 H 99 12/02/24 09:00 100 H 99 12/02/24 08:55 93 H 99 12/02/24 08:50 106 H 94/55 L 99 12/02/24 08:45 93 H 99 12/02/24 08:40 99 H 99 12/02/24 08:35 102 H 100 12/02/24 08:30 98 H 100 12/02/24 08:25 106 H 99 12/02/24 08:20 107 H 99/58 L 100 12/02/24 08:15 104 H 100 12/02/24 08:10 104 H 100 12/02/24 08:05 107 H 100 12/02/24 08:00 108 H 100 12/02/24 07:55 110 H 100 12/02/24 07:50 114 H 112/58 L 100 12/02/24 07:45 36.7 C 20 12/02/24 07:45 118 H 100 12/02/24 07:40 109 H 100 12/02/24 07:35 118 H 100 12/02/24 07:30 115 H 100
[2024-12-02] MEDS: ACETAMINOPHEN 325 MG TAB PO PRN (21:13)
--- NOTE | 2024-12-03 05:49 | Obstetrical Progress Note ---
Date of Service December 03, 2024 Assessment & Plan (1) Encounter for care and examination after delivery: (2) Vulval hematoma due to trauma: (3) Gestational diabetes: (4) Hypothyroidism during : Plan Pt is 34 yo post- day 1 s/p at 39w6d. Following delivery, EBL of 1500+. She was taken to OR for manual extraction, found to have hematoma in posterior vaginal vault. Pt has received 2 units of pRBCs - Encourage ambulation - Encourage breast feeding, consult critical care nurse specialist as needed - DC maldonado - Pain control with tylenol, ibuprofen and oxycodone/acetaminophen PRN - Anticipate DC home 12/04 Admission and Anticipated Discharge Date Admission Date: December 01, 2024 Supervising Physician Co-Signing Physician Notes Resident Physician Supervision Note: I interviewed and examined the patient. Discussed with Dr. Carroll and agree with findings and plan as documented in the note. Any exceptions or clarifications are listed here: Patient doing much better. Color better, sitting up in bed. Notes passing gas. Notes pain overall controlled. hgb today is 7.8 from 9.6. Vitals are stable. Packing removed, bloody but appears to be older. Will remove maldonado and ambulate and see how she does. She is currently asymptomatic. Would recommend monitoring today. Documented By: Seble Cabrales MD, FACOG Subjective Pt is 34 yo post- day 1 s/p at 39w6d. Pregnacy complicated by fiet controlled GDM and hypothyroidism. Following delivery, EBL of 1500+. She was taken to OR for manual extraction, found to have hematoma in posterior vaginal vault. Pt has received 2 units of pRBCs Ambulation: few steps int he room Voiding: maldonado in place Passing gas: yes BM: no Diet tolerance:regular diet Lochia:bloody, no clots Feeding type: breast and formula Current pain level: 5 /10 improved with ibuprofen and oxycodone Resting comfortably this morning in NAD. Denies FERRER, CP, SOB, N/V/D, LE pain/swelling. Review of Systems Review of Systems: As per HPI Physical Exam Constitutional: WD/WN, vitals as above Respiratory: normal respiratory effort, lungs clear to auscultation Cardiovascular: RRR, no murmur, no edema Gastrointestinal (Abdomen): normal bowel sounds, soft, nontender, no hepatosplenomegaly Uterine fundus firm and at 1 cm below level of umbilicus Neurologic: PERRL, EOMI, accommodation nl, no face palsy, no dysarthria Moving all 4 extremities on command Psychiatric: A+Ox3, euthymic affect Genitourinary: Packing in vaginal vault Results & Data Vital Signs (Past 12 Hours) Vital Signs Temp Pulse Pulse Resp BP BP Pulse Ox 12/03/24 00:13 36.9 C 90 14 85/54 L 12/02/24 20:45 36 C L 96 H 16 82/53 L 12/02/24 20:25 98 H 100 12/02/24 20:20 94 H 100 12/02/24 20:15 95 H 100 12/02/24 20:10 96 H 99 12/02/24 20:05 98 H 99 12/02/24 20:00 92 H 100 12/02/24 19:55 98 H 99 12/02/24 19:50 95 H 98 12/02/24 19:45 100 H 99 12/02/24 19:40 101 H 99 12/02/24 19:35 114 H 99 12/02/24 19:30 89 100 12/02/24 19:28 83 90/51 L 12/02/24 19:25 88 100 12/02/24 19:20 96 H 100 12/02/24 19:15 81 99 12/02/24 19:10 83 99 12/02/24 19:05 80 99 12/02/24 19:00 85 100 12/02/24 18:55 84 100 12/02/24 18:50 87 100 12/02/24 18:45 85 100 12/02/24 18:40 85 100 12/02/24 18:35 87 100 12/02/24 18:30 93 H 100 12/02/24 18:28 89 93/52 L 12/02/24 18:25 93 H 100 12/02/24 18:22 36.8 C 12/02/24 18:20 91 H 100 12/02/24 18:15 94 H 100 12/02/24 18:10 20 12/02/24 18:10 101 H 97 12/02/24 18:05 101 H 100 12/02/24 18:00 102 H 100 12/02/24 17:55 93 H 100 12/02/24 17:50 90 100 12/02/24 17:45 93 H 100 O2 Del Method 12/03/24 00:13 Room Air 12/02/24 20:45 12/02/24 20:25 12/02/24 20:20 12/02/24 20:15 12/02/24 20:10 12/02/24 20:05 12/02/24 20:00 12/02/24 19:55 12/02/24 19:50 12/02/24 19:45 12/02/24 19:40 12/02/24 19:35 12/02/24 19:30 12/02/24 19:28 12/02/24 19:25 12/02/24 19:20 12/02/24 19:15 12/02/24 19:10 12/02/24 19:05 12/02/24 19:00 12/02/24 18:55 12/02/24 18:50 12/02/24 18:45 12/02/24 18:40 12/02/24 18:35 12/02/24 18:30 12/02/24 18:28 12/02/24 18:25 12/02/24 18:22 12/02/24 18:20 12/02/24 18:15 12/02/24 18:10 12/02/24 18:10 12/02/24 18:05 12/02/24 18:00 12/02/24 17:55 12/02/24 17:50 12/02/24 17:45 Resident Activity Tracking Resident Involvement: Resident Care Provided Care Provided: Adult Hospital Medicine
[2024-12-03 07:18] LABS: Hematocrit (blood only) 23.5 % (37.0-47.0); Hemoglobin 7.8 g/dl (12.0-16.0); Mean Corpuscular Hemoglobin 29.7 pg (25.0-34.0); Mean Corpuscular Hgb Conc 33.2 g/dL (32.0-36.0); Mean Corpuscular Volume 89.4 fL (80.0-100.0); Mean Platelet Volume 12.8 fL (9.4-12.4); Platelet Count 108 K/uL (130-400); RDW Coefficient of Variation 14.8 % (11.5-14.5); RDW Standard Deviation 47.9 fL (36.4-46.3); Red Blood Count 2.63 M/uL (4.20-5.40); White Blood Count 12.62 K/ul (4.8-10.8)
[2024-12-03] MEDS ORDERED: bisacodyL 5 MG TABEC PO SCH (20:00)
[2024-12-03] MEDS: bisacodyL 5 MG TABEC PO SCH (20:08)
[2024-12-03 23:38] VITALS: PULSE 86
[2024-12-04] MEDS ORDERED: bisacodyL 10 MG SUPP PR PRN ×2 (01:05→06:00)
[2024-12-04 06:26] LABS: Hemoglobin 7.1 g/dl (12.0-16.0)
--- NOTE | 2024-12-04 08:26 | Obstetrical Progress Note ---
Date of Service December 04, 2024 Assessment & Plan (1) Encounter for care and examination after delivery: resolving vulvar hematoma - marked improvement since yesterday H&H stable at 7.1- not symptomatic so will continue with additional iron supplement daily for next 6 weeks follow up in office for hematoma in 1 week Subjective Ambulation: ambulating normally Voiding: no voiding problems Passing Gas:: Yes (BM this morning- somewhat painful) Lochia:: Small Feeding Type:: breast feeding ambulating without lightheadedness or syncope feels perineum is less painful and swollen voiding without difficulty Review of Systems All systems reviewed & are unremarkable except as noted in HPI & below Physical Exam Constitutional WD/WN, vitals as above Psychiatric A+Ox3, euthymic affect Genitourinary OB Exam Abdomen: + fundal height Fundus: + firm and + relation to umbilicus (2 below) vulvar swelling is markedly reduced this morning, bryson rectal area swelling also significantly better Results & Data Vital Signs (Past 12 Hours) Vital Signs Temp Pulse Resp BP O2 Del Method 12/03/24 23:15 98.2 F 86 14 84/49 L Room Air
[2024-12-04 09:26] VITALS: BP 88/47; RESP 16; TEMP 97.9; O2SAT 98
--- NOTE | 2024-12-06 07:35 | Coding Query ---
ANEMIA To promote full compliance with coding requirements relating to patient care, physician participation is requested in all cases of agricultural education instructor uncertainty. Please assist us with the question(s) below: Coding Question(s): The record reflects the following clinical findings: EBL 1500 plus, post-delivery hematoma & 2 UPC given. If these findings are indicative of anemia, please specify the known or suspected type by placing an "X" within the parenthesis (x). If other, please document type. Examples are: ( ) Acute blood loss anemia ( ) Acute Postoperative blood loss anemia ( ) Acute postoperative anemia due to dilutional fluids ( ) Chronic blood loss anemia ( ) Anemia of chronic disease ( ) Aplastic anemia ( ) Anemia due to renal disease ( ) Anemia in neoplastic disease ( ) Iron deficient anemia ( ) Anemia, unspecified or other ( ) Other: (please specify) Thank you ALBINO Hernandez CCS
--- NOTE | 2024-12-06 16:41 | Discharge Summary ---
Date of Service December 06, 2024 Admission HPI Per Admitting Provider Aurelia is a 31 y/o female currently at 39/6/7 WGA with an CECELIA 12/02/24 as determined by Ultrasound who is here for induction. Her was complicated by Hypothyroidism and GDM. no contractions; regular movement; no fluid loss; no bloody show External FHT and external uterine monitors used; Category 1 tracing; moderate FHT variability. Had regular appointments with OB. Blood Type O Positive 05/03/24 Antibody Screen NEGATIVE 05/03/24 Hgb 12.5 g/dl (12.0-16.0) 10/20/24 Hct 38.8 % (37.0-47.0) 10/20/24 MCV 89.0 fL (80.0-100.0) 10/20/24 Plt Count 147 K/uL (130-400) 10/20/24 Rubella IgG Antibody Immune (Immune) 05/03/24 Treponema pallidum Ab Negative (Negative) 09/22/24 Hep Bs Antigen Negative (Negative) 05/03/24 Hepatitis C Antibody Negative (Negative) 05/03/24 HIV 1&2 Ab/P24 Ag 4thGn Negative (Negative) 05/03/24 Glucose 1 Hr 50 gm 194 mg/dl (70-130) H 09/22/24 OB Optional Labs: Chlamydia trachomatis RNA Not Detected (NotDetected) 05/03/24 Neisseria gonorrhoeae RNA Not Detected (NotDetected) 05/03/24 Thyroid Stimulating Hormone (TSH) 1.770 uIu/ml (0.300-4.500) 09/21/24 H.1 (today) Hct: 36.3 (today) WBC: 7.91 (today) Plt: 114 (today) Discharge Data Consultations 12/01/24 07:58 Consult Anesthesiology Stat Procedures Performed Operation Date: 12/02/24 04:30 Actual Procedures p Exam Under Anesthesia for drainage of vaginal hematoma(Not Applicable) - Carl Grant MD, [facility] [place] [facility] [place] Course (1) Encounter for care and examination after delivery: resolving vulvar hematoma - marked improvement since yesterday H&H stable at 7.1- not symptomatic so will continue with additional iron supplement daily for next 6 weeks follow up in office for hematoma in 1 week Supervising Physician Co-Signing Physician Notes Resident Physician Supervision Note: I interviewed and examined the patient. Discussed with Dr. Carroll and agree with findings and plan as documented in the note. Any exceptions or clarifications are listed here: Patient doing much better. Color better, sitting up in bed. Notes passing gas. Notes pain overall controlled. hgb today is 7.8 from 9.6. Vitals are stable. Packing removed, bloody but appears to be older. Will remove maldonado and ambulate and see how she does. She is currently a symptomatic. Would recommend monitoring today. Documented By: Seble Cabrales MD, FACOG Coding Level of Care Code None Diagnoses Encounter for care and examination after delivery Z39.2
--- NOTE | 2024-12-07 05:33 | Coding Query ---
CODING QUERY To promote full compliance with coding requirements relating to patient care, provider participation is requested in all cases of security program manager uncertainty. Please assist us with the question(s) below: Coding Question(s): Pt developed a vaginal hematoma post delivery, 1500 plus EBL 2 UPC given. Please document below the diagnosis that was treated with the administration of the blood transfusion. Thank you. Freddy Shin, [facility] . Physician's Response(s): Acute hemorrhage Principal Diagnosis: "that condition established after study, to be chiefly responsible for occasioning the admission of the patient to the hospital for care." Co-Existing Principal Diagnosis: "when two or more diagnoses equally meet the criteria for principal diagnosis as determined by the circumstances of admission, diagnostic work up, and/or therapy provided, and the Alphabetic Index, Tabular List, or another coding guideline does not provide sequencing direction, any one of the diagnoses may be sequenced first." "When the physician has documented what appears to be a current diagnosis in the body of the record, but has not included the diagnosis in the final diagnostic statement, the physician should be asked whether the diagnosis should be added." (Source Coding [facility] 2 QTR90. p3-4) JADA
== END 2024-12-04 12:15 | disposition home or self-care (01) | DRG 768 ==
LOC: 4S1 07:37 → 4E2 12-02 21:00